=== PATIENT | female | born 2000 | race Caucasian/White ===

== ENCOUNTER 2023-12-13 17:11 | Emergency (ER) | payer OTHER, SELFPAY ==
[2023-12-13 17:25] VITALS: BP 151/70; PULSE 110; RESP 16; TEMP 37.5; O2SAT 98
--- NOTE | 2023-12-13 17:42 | ED.URI ---
HPI - URI/Sore Throat General Chief Complaint: Upper Respiratory Infection Stated Complaint: fever/headaches Time Seen by Provider: 12/13/23 17:40 Source: patient, family, RN notes reviewed and old records reviewed Mode of arrival: ambulatory Limitations: no limitations History of Present Illness HPI Narrative: 23 year old female who preent to express care with complaints of fever, headaches, runny nose headaches,scratchy throat and reports fever at noon today of 105.6F. Patient reports that she took Tylenol and fever is down. Patient reports that respiratory symptoms started yesterday. Patient reports that she has been taking Mucinex and Tylenoll for her symptoms. Patient reports no shortness of breath, no nausea and vomiting or any diarrhea. MD elicited complaint: fever, sore throat, rhinorrhea, nasal congestion and other (headaches) Onset (ago): day(s) (day 2 of symptoms) Severity: moderate Able to tolerate fluids by mouth: Yes Treatments prior to arrival: acetaminophen and other (Mucinex) Related Data Allergies Allergy/AdvReac Type Severity Reaction Status Date / Time milk Allergy Unknown Verified 03/21/18 18:06 wheat Allergy Unknown Verified 03/21/18 18:06 Review of Systems Review of Systems: CONSTITUTIONAL:Reports malaise, chills, sweats, or fever. EYES: Denies visual changes, redness, or discharge. ENT: Reports rhinorrhea, congestion, sinus pain, no otalgia and positive for sore throat. CARDIOVASCULAR: Denies chest pain, palpitations, or edema. RESPIRATORY: Reports cough.? Denies dyspnea. GASTROINTESTINAL: Denies abdominal pain, nausea, vomiting, diarrhea SKIN: Denies rash or itching. MUSCULOSKELETAL: Denies myalgia. NEUROLOGIC:Reports headache. All systems reviewed & are unremarkable except as noted in HPI and below PMFSH Past Medical History Medical History (Updated 12/15/23 @ 16:17 by Silke Davila NP) Buckle fracture of right wrist Social History Social History (Updated 12/15/23 @ 16:18 by Silke Davila NP) Smoking status: Never smoker Alcohol intake: unknown Substance use type: does not use Gender identity (if verbalized by the patient): Female Comments At time of signature, agree with nursing past medical, surgical, social and family history. There is no relevant family history pertinent to the presenting complaint Exam Narrative: GENERAL: Well-appearing, well-nourished, and in no acute distress. HEAD: Normocephalic EYES: PERRLA, conjunctivae clear ENT: Nares clear, turbinates edematous and erythematous, clear discharge. Mucous membranes moist. TM pearly lerma with dull light reflex bilaterally; no tragal tenderness. Oropharynx erythematous without lesions. Tonsils not enlarged and without exudate, no drooling, no hoarseness, no trismus, uvula midline.post nasal drainage NECK: Supple. No lymphadenopathy CHEST: Clear to auscultation, breath sounds equal. No wheezing, rhonchi, rales, or stridor. No respiratory distress, speaks in full sentences.SAO2 98% on room air HEART: Regular rate and rhythm. No murmur heard. SKIN: Warm, dry, no rash. NEURO: Alert and oriented x3. PSYCH: Normal mood and affect Course Course Emergency Course: Patient is aware of diagnosis, understands and agrees to treatment plan.? Anticipatory guidance given.? Patient agrees to follow-up as directed and is aware of reasons to seek care at the emergency department. Portions of this record may have been created with voice recognition software Level of Care: Express Care Visit Vital Signs Vital signs: Vital Signs Temperature 37.5 C 12/13/23 17:25 Pulse Rate 110 H 12/13/23 17:25 Respiratory Rate 16 12/13/23 17:25 Blood Pressure 151/70 H 12/13/23 17:25 Pulse Oximetry 98 12/13/23 17:25 Oxygen Delivery Room Air 12/13/23 17:25 Temperature 37.5 C 12/13/23 17:25 Pulse Rate 110 H 12/13/23 17:25 Respiratory Rate 16 12/13/23 17:25 Blood Pressure
== END 2023-12-13 18:13 | disposition home or self-care (01) ==
PROVIDERS: Emergency Provider Registered Nurse
DX: J10.1 Influenza due to other identified influenza virus with other respiratory manifestations (principal); Z20.822 Contact with and (suspected) exposure to COVID-19
CPT/HCPCS: 87081; 87426; 87804; 87880; 99213; G0463